=== PATIENT | male | born 1955 | race Caucasian/White ===

== ENCOUNTER 2016-04-15 13:21 | Outpatient (CLI) | payer MEDICAID | END 2016-04-15 13:22 | disposition home or self-care (01) | DX: M18.0 Bilateral primary osteoarthritis of first carpometacarpal joints (principal); M19.042 Primary osteoarthritis, left hand; M19.041 Primary osteoarthritis, right hand; M19.072 Primary osteoarthritis, left ankle and foot; M19.071 Primary osteoarthritis, right ankle and foot ==

== ENCOUNTER 2016-04-21 21:21 | Outpatient (CLI) | payer MEDICAID | END 2016-04-21 21:22 | disposition home or self-care (01) | DX: Z12.11 Encounter for screening for malignant neoplasm of colon (principal) ==

== ENCOUNTER 2016-04-22 13:52 | Outpatient (CLI) | payer MEDICAID | END 2016-04-22 13:53 | disposition home or self-care (01) | DX: M62.838 Other muscle spasm (principal); Z12.5 Encounter for screening for malignant neoplasm of prostate ==

== ENCOUNTER 2016-09-07 14:32 | Outpatient (CLI) | payer MEDICAID ==
[2016-09-07 18:25] LABS: BASOPHILS % (AUTO) 0.5 %; EOSINOPHILS # (AUTO) 0.1 10^3/uL (0.0-0.7); EOSINOPHILS % (AUTO) 0.9 %; LYMPHOCYTES # (AUTO) 1.2 10^3/uL (1.5-3.5); LYMPHOCYTES % (AUTO) 16.5 %; MEAN CORPUSCULAR HEMOGLOBIN 31.1 pg (27.0-31.0); MEAN CORPUSCULAR VOLUME 91.2 fL (80.0-94.0); MEAN PLATELET VOLUME 8.5 fL (7.4-11.4); MONOCYTES # (AUTO) 0.4 10^3/uL (0.0-1.0); MONOCYTES % (AUTO) 5.4 %; NEUTROPHILS # (AUTO) 5.8 10^3/uL (1.5-6.6); NEUTROPHILS % (AUTO) 76.7 %; RED BLOOD COUNT 4.83 10^6/uL (4.70-6.10); RED CELL DISTRIBUTION WIDTH 14.5 % (12.0-15.0); UNCORRECTED WHITE BLOOD COUNT 7.5 x10^3/uL; WHITE BLOOD COUNT 7.5 x10^3/uL (4.8-10.8)
[2016-09-07 19:30] LABS: ALBUMIN/GLOBULIN RATIO 1.9 (1.0-2.2); BILIRUBIN,TOTAL 0.9 mg/dL (0.2-1.0); BUN - BLOOD UREA NITROGEN 21 mg/dL (6-20); CALCIUM 9.5 mg/dL (8.5-10.3); CARBON DIOXIDE - CO2 26 mmol/L (21-32); CHLORIDE 107 mmol/L (101-111); CREATININE 0.9 mg/dL (0.6-1.2); GFR - MDRD 86 (>89); GLUCOSE 80 mg/dL (70-100); POTASSIUM 3.9 mmol/L (3.5-5.0); SODIUM 141 mmol/L (135-145); TOTAL PROTEIN 6.6 g/dL (6.7-8.2)
== END 2016-09-07 14:33 | disposition home or self-care (01) ==
LOC: LAB.S 14:32
PROVIDERS: ATTEND Internal Medicine Rheumatology
DX: M06.09 Rheumatoid arthritis without rheumatoid factor, multiple sites (principal); M48.06 Spinal stenosis, lumbar region; G89.4 Chronic pain syndrome; K58.9 Irritable bowel syndrome, unspecified; F41.8 Other specified anxiety disorders; F40.231 Fear of injections and transfusions; R68.84 Jaw pain
CPT/HCPCS: 36415; 80053; 85025; 85651; 86140

== ENCOUNTER 2016-09-17 14:38 | Outpatient (CLI) | payer MEDICAID ==
--- NOTE | 2016-09-18 15:19 | MRI Report ---
MRI LUMBAR SPINE WITHOUT CONTRAST INDICATION: 61-year-old male with left hip flexor weakness. Concern for progression of lumbar spine s tenosis. COMPARISON: None. TECHNIQUE: 1. Sagittal STIR, T1 and T2. 2. Sagittal T1 and T2. FINDINGS: There appear to be 5 sfp-awo-dqduote, lumbar-type vertebrae. The S1 vertebra is dysplastic with very thin left pedicle, compared to right (see image 7 of series 601). There is a fairly well-formed S1-S2 disk. Axial images demonstrate a mild levoconvex curvature with apex at about the L2-L3 disk level. In the sagittal plane there is mild stepwise retrolisthesis of L4 on L5 (4 mm) and L5 on S1 (4 mm). In addit ion, there is minimal retrolisthesis of L3 on L4. Alignment is otherwise unremarkable. There is minimal anterior wedging of T11 and mild anterior wedging of T12. Configurations such as thi s can be seen as a normal anatomical variant at the thoracolumbar junction. The vertebral body height s are otherwise preserved. Degenerative changes are seen in the disks at T11-T12 and from L2-L3 to L5-S1. The T12-L1 and L1-L2 d isks have a relatively normal appearance. There is moderate to severe disk space narrowing at L4-L5 a nd L5-S1. The disk space heights are otherwise relatively preserved. A combination of type I and type II reactive there are change is identified in the vertebral endplate s at L4-L5 on the left and at L5-S1 on the right. The marrow signal intensity is otherwise unremarkab le. The conus terminates in an appropriate fashion above the L1-L2 disk level. There is no abnormal thick ening or lipomatous change of the filum. Axial Images: L1-L2: No disk herniation. No spinal canal or foraminal stenosis. L2-L3: Small intraforaminal/extraforaminal protrusions bilaterally. Degenerative facet arthrosis with mild right facet hypertrophy. Mild prominence of intralaminar fat pad. No spinal stenosis. Mild fora flip narrowing. L3-L4: Broad-based, posterior extrusion projecting into the spinal canal for up to about 4.5 mm. Asso ciated annular fissure. Broad-based intraforaminal/extraforaminal protrusions bilaterally, larger on the right than the left. Degenerative facet arthrosis with mild right facet hypertrophy. Mild redunda ncy of ligamenta flava and mild prominence of intralaminar fat pad. The subarticular zones are stenos ed bilaterally; however, no definite impingement of traversing L4 nerve roots is demonstrated. No sig nificant central zone spinal stenosis. Lfhf-af-liimwqed bilateral foraminal stenoses. L4-L5: There is evidence of previous bilateral L5 laminectomy. Broad-based left intraforaminal/extraf oraminal extrusion. Small right intraforaminal/extraforaminal protrusion. Broad-based, posterior extr usion with caudal migration. The extrusion projects posteriorly into the spinal canal for about 7 mm. Suspect early degenerative facet arthrosis. Minimal bony hypertrophy. There is significant appearing right subarticular zone stenosis with probable compromise of traversing right L5 nerve root in the s ubarticular zone. No central zone or left subarticular zone stenosis. Cuye-co-twqmsauz right and very severe left foraminal stenoses. On the left intra-foraminal extrusion contacts the undersurface of t he exiting L4 nerve root. The perineural fat is effaced and the nerve root appears to be at least mil dly flattened in the lateral aspect of the neural foramen. L5-S1: Broad-based, right posterolateral and intraforaminal/extraforaminal extrusion. Degenerative fa cet arthrosis without significant bony hypertrophy. There is fairly severe right foraminal stenosis w ith partial effacement of perineural fat surrounding exiting right L5 nerve root. No spinal canal nidia nosis or left foraminal stenosis. Fairly advanced fatty atrophy is noted in the posterior paraspinal musculature at the L5-S1 level. Th ere is a roughly 4 mm diameter T2 hyperintense focus in cortex of lower pole right kidney, consistent with a benign cortical cyst. The regional paraspinous soft tissues are otherwise unremarkable. IMPRESSION: 1. Post surgical changes are demonstrated with evidence of previous bilateral L5 laminectomies. 2. Degenerative disk and facet changes are seen at multiple levels, most advanced in the lower lumbar region. 3. At L4-L5 there is significant appearing right subarticular zone stenosis with possible compromise of traversing right L5 nerve root. Recommend clinical correlation for possible L5 radiculopathy. 4. At L4-L5 also demonstrated is high-grade left foraminal stenosis with probable compromise of exiti ng left L4 nerve root. Recommend clinical correlation for left L4 radiculopathy. 5. At L5-S1 there is potentially significant right-sided foraminal narrowing. An intraforaminal extru anahi appears to contact the undersurface of exiting right L5 nerve root. This is a potential cause fo r right L5 nerve root irritation. Recommend clinical correlation for possible right L5 radiculitis. 6. No other high-grade stenosis is demonstrated and no other potential nerve root irritation or impin gement is identified. Referring Provider Line: [phone] SITE ID: [id number]
== END 2016-09-17 14:39 | disposition home or self-care (01) ==
LOC: DI 14:38
PROVIDERS: ATTEND Psychiatry & Neurology Neurology
DX: M48.06 Spinal stenosis, lumbar region (principal)
CPT/HCPCS: 72148

== ENCOUNTER 2016-11-04 02:05 | Emergency (ER) | payer MEDICAID ==
[2016-11-04 02:15] VITALS: BP 135/82
--- NOTE | 2016-11-04 04:01 | ED Physician Documentation ---
PD HPI OPHTHO - Stated complaint Stated Complaint: LT EYE PAIN - Chief complaint Chief Complaint: Heent - History obtained from History obtained from: Patient - History of Present Illness Timing - onset: Today Timing - duration: Hours Timing - details: Gradual onset Associated symptoms: Redness, FB sensation Recently seen: Not recently seen - Additional information Additional information: foreign body sensation left eye. no specific trauma or recollection of foreign body entering the eye. However, he was grinding metal earlier today. Patient wears glasses but not contact lenses. Review of Systems Eyes: reports: Irritation. denies: Loss of vision, Decreased vision, Photophobia, Discharge PD PAST MEDICAL HISTORY - Past Medical History Past Medical History: No - Allergies Allergies/Adverse Reactions: Allergies Allergy/AdvReac Type Severity Reaction Status Date / Time Sulfa (Sulfonamide Allergy Edema Verified 11/04/16 02:15 Antibiotics) - Living Situation Living Arrangement: reports: At home PD ED PE NORMAL - Vitals Vital signs reviewed: Yes - General General: Alert and oriented X 3, No acute distress, Well developed/nourished - HEENT HEENT: PERRL, EOMI PD ED PE EXPANDED - Eyes Eyes: No eyelid FB (everted), Subconj hemorrhage (left eye, nasal aspect), Normal corneas, Anterior chambers clear. No: Eyelid swelling, Eyelid erythema, Corneal FB, Corneal abrasion, Corneal ulcer, Fluorescein uptake, Hyphema Results - Vitals Vitals: Oxygen O2 Source Room air PD MEDICAL DECISION MAKING - ED course Complexity details: considered differential, d/w patient Departure - Departure Disposition: 01 Home, Self Care Clinical Impression: Subconjunctival hemorrhage of left eye Condition: Good Instructions: ED Eye Injury Subconj Hemorrhage Discharge Date/Time: 11/04/16 04:34
[2016-11-04] MEDS ORDERED: PROPARACAINE 0.5% OPHTH DROPS 15 ML LEFTEYE STA (04:02)
[2016-11-04] MEDS ORDERED: PROPARACAINE 0.5% OPHTH DROPS 15 ML ONE (04:07)
== END 2016-11-04 04:34 | disposition home or self-care (01) ==
LOC: ED 02:05
DX: H11.32 Conjunctival hemorrhage, left eye (principal)
CPT/HCPCS: 99282; J3490

== ENCOUNTER 2016-12-30 13:35 | Outpatient (CLI) | payer MEDICAID ==
[2016-12-30 17:34] LABS: BASOPHILS % (AUTO) 0.5 %; EOSINOPHILS % (AUTO) 0.4 %; HCT - HEMATOCRIT 46.2 % (42.0-52.0); HGB - HEMOGLOBIN 15.4 g/dL (14.0-18.0); LYMPHOCYTES # (AUTO) 1.1 10^3/uL (1.5-3.5); LYMPHOCYTES % (AUTO) 13.2 %; MEAN CORPUSCULAR HEMOGLOBIN 30.1 pg (27.0-31.0); MEAN CORPUSCULAR HGB CONC 33.3 g/dL (32.0-36.0); MEAN CORPUSCULAR VOLUME 90.3 fL (80.0-94.0); MEAN PLATELET VOLUME 7.8 fL (7.4-11.4); MONOCYTES # (AUTO) 0.6 10^3/uL (0.0-1.0); MONOCYTES % (AUTO) 7.3 %; NEUTROPHILS # (AUTO) 6.6 10^3/uL (1.5-6.6); NEUTROPHILS % (AUTO) 78.6 %; RED BLOOD COUNT 5.11 10^6/uL (4.70-6.10); UNCORRECTED WHITE BLOOD COUNT 8.5 x10^3/uL; WHITE BLOOD COUNT 8.5 x10^3/uL (4.8-10.8)
[2016-12-30 18:11] LABS: ALBUMIN/GLOBULIN RATIO 1.6 (1.0-2.2); BILIRUBIN,TOTAL 0.7 mg/dL (0.2-1.0); BUN - BLOOD UREA NITROGEN 23 mg/dL (6-20); CALCIUM 9.6 mg/dL (8.5-10.3); CARBON DIOXIDE - CO2 23 mmol/L (21-32); CHLORIDE 105 mmol/L (101-111); CREATININE 0.9 mg/dL (0.6-1.2); GFR - MDRD 86 (>89); GLUCOSE 102 mg/dL (70-100); POTASSIUM 4.1 mmol/L (3.5-5.0); SODIUM 136 mmol/L (135-145)
== END 2016-12-30 13:36 | disposition home or self-care (01) ==
LOC: LAB.F 13:35
PROVIDERS: ATTEND Internal Medicine Rheumatology
DX: L40.50 Arthropathic psoriasis, unspecified (principal); M79.1 Myalgia; M19.90 Unspecified osteoarthritis, unspecified site; M48.02 Spinal stenosis, cervical region; G89.4 Chronic pain syndrome; K58.9 Irritable bowel syndrome, unspecified; F41.8 Other specified anxiety disorders; F40.231 Fear of injections and transfusions; L30.9 Dermatitis, unspecified
CPT/HCPCS: 36415; 80053; 85025; 85651; 86140

== ENCOUNTER 2017-03-08 13:37 | Outpatient (CLI) | payer MEDICAID ==
--- NOTE | 2017-03-09 14:41 | DEXA Report ---
DEXA SCAN: 03/08/2017 CLINICAL INDICATION: Rheumatoid arthritis, long-term steroid use, methotrexate therapy. TECHNIQUE: Dual energy x-ray absorptiometry (DXA) was performed on a MC10 system. Regions measured are the AP spine, femoral neck, and, if needed, forearm. COMPARISON: None. In accordance with the International Society for Clinical Densitometry (ISCD) guidelines, data from previous exams may be reanalyzed using current recommendations and techniques. This is done to allow a more accurate basis for comparison with the current study. FINDINGS The data for the lumbar spine is as follows: REGION BMD (g/cm/cm) T-SCORE Z-SCORE L1 1.060 -0.8 -0.3 L2 1.158 -0.7 -0.2 L3 1.241 0.0 0.5 L4 1.237 0.0 0.5 L1 - L3 1.159 -0.4 0.1 NOTE: All evaluable vertebrae are used for classification. The data for the hip is as follows: REGION BMD (g/cm/cm) T-SCORE Z-SCORE Neck 0.859 -1.6 -0.5 TOTAL 0.966 -0.9 -0.4 NOTE: The femoral neck or total proximal femur, whichever is lowest, is used for classification. IMPRESSION THE WHO CLASSIFICATION BASED ON THE INTERNATIONAL REFERENCE STANDARD IS OSTEOPENIA (REFERENCE LEFT FEMORAL NECK). THE FRACTURE RISK IS INCREASED. RECOMMENDATION: Patients with diagnosis of osteoporosis or osteopenia should have regular bone mineral density assessment. For those eligible for Medicare, routine testing is allowed once every 2 years. Testing frequency can be increased for patients who have rapidly progressing disease or for those who are receiving medical therapy to restore bone mass. COMMENT: World Health Organization (WHO) definitions for osteoporosis and osteopenia: NORMAL BMD: T-score at 1.0 or higher, fracture risk is low. OSTEOPENIA BMD: T-score between 1.0 and -2.5, fracture risk is increased. OSTEOPOROSIS BMD: T-score at 2.5 or lower, fracture risk high. National Osteoporosis Foundation recommends: 1. Obtain adequate dietary calcium (at least 1200 mg per day) and vitamin D (400 -800 international units per day). 2. Participate, as appropriate, in regular weightbearing and muscle- strengthening exercise. 3. Avoid tobacco use and reduce alcohol and caffeine intake. 4. For more detailed information see the website at www.NOF.org. TD: 03/08/2017 17:35 MTDJenelle
== END 2017-03-08 13:38 | disposition home or self-care (01) ==
LOC: DI 13:37
PROVIDERS: ATTEND Internal Medicine Rheumatology
DX: M85.88 Other specified disorders of bone density and structure, other site (principal)
CPT/HCPCS: 77080

== ENCOUNTER 2018-02-04 08:00 | Outpatient (CLI) | payer MEDICAID ==
[2018-02-04 17:44] LABS: BASOPHILS # (AUTO) 0.1 10^3/uL (0.0-0.1); BASOPHILS % (AUTO) 0.9 %; EOSINOPHILS # (AUTO) 0.1 10^3/uL (0.0-0.7); EOSINOPHILS % (AUTO) 0.7 %; HGB - HEMOGLOBIN 15.3 g/dL (14.0-18.0); LYMPHOCYTES % (AUTO) 10.9 %; MEAN CORPUSCULAR HEMOGLOBIN 30.6 pg (27.0-31.0); MEAN CORPUSCULAR VOLUME 92.7 fL (80.0-94.0); MEAN PLATELET VOLUME 7.8 fL (7.4-11.4); MONOCYTES # (AUTO) 0.5 10^3/uL (0.0-1.0); NEUTROPHILS # (AUTO) 7.7 10^3/uL (1.5-6.6); NEUTROPHILS % (AUTO) 82.5 %; PLT - PLATELET COUNT 255 10^3/uL (130-450); RED BLOOD COUNT 5.01 10^6/uL (4.70-6.10); WHITE BLOOD COUNT 9.3 x10^3/uL (4.8-10.8)
[2018-02-04 17:59] LABS: ALBUMIN 4.4 g/dL (3.2-5.5); ALBUMIN/GLOBULIN RATIO 1.8 (1.0-2.2); ALKALINE PHOSPHATASE 75 IU/L (42-121); ALT ALANINE AMINOTRANSFERASE 32 IU/L (10-60); AST ASPARTATE AMINOTRANSFERASE 29 IU/L (10-42); BUN - BLOOD UREA NITROGEN 18 mg/dL (6-20); CALCIUM 9.6 mg/dL (8.5-10.3); CARBON DIOXIDE - CO2 24 mmol/L (21-32); CHLORIDE 104 mmol/L (101-111); CREATININE 0.8 mg/dL (0.6-1.2); GFR - MDRD 98 (>89); GLUCOSE 99 mg/dL (70-100); SODIUM 137 mmol/L (135-145); TOTAL PROTEIN 6.8 g/dL (6.7-8.2)
[2018-02-04 19:36] LABS: CRP - C-REACTIVE PROTEIN < 1.0 mg/dL (0-1.0)
== END 2018-02-04 23:59 | disposition home or self-care (01) ==
LOC: LAB.F 08:00
PROVIDERS: ATTEND Nurse Practitioner Family
DX: M06.9 Rheumatoid arthritis, unspecified (principal)
CPT/HCPCS: 36415; 80053; 85025; 85651; 86140

== ENCOUNTER 2019-03-17 14:05 | Outpatient (CLI) | payer MEDICAID, MEDICARE | END 2019-03-17 23:59 | disposition home or self-care (01) | LOC: LAB.R 14:05 | PROVIDERS: ATTEND Registered Nurse | DX: R30.0 Dysuria (principal) | CPT/HCPCS: 87086 ==

== ENCOUNTER 2019-05-26 13:53 | Outpatient (CLI) | payer MEDICARE ==
[2019-05-26 17:12] LABS: BASOPHILS % (AUTO) 0.6 %; EOSINOPHILS # (AUTO) 0.1 10^3/uL (0.0-0.7); EOSINOPHILS % (AUTO) 1.4 %; LYMPHOCYTES # (AUTO) 0.8 10^3/uL (1.5-3.5); LYMPHOCYTES % (AUTO) 15.3 %; MEAN CORPUSCULAR HEMOGLOBIN 29.9 pg (27.0-31.0); MEAN CORPUSCULAR HGB CONC 33.6 g/dL (32.0-36.0); MEAN CORPUSCULAR VOLUME 88.9 fL (80.0-94.0); MEAN PLATELET VOLUME 11.3 fL (7.4-11.4); MONOCYTES # (AUTO) 0.6 10^3/uL (0.0-1.0); MONOCYTES % (AUTO) 10.7 %; NEUTROPHILS # (AUTO) 3.7 10^3/uL (1.5-6.6); NEUTROPHILS % (AUTO) 71.4 %; PLT - PLATELET COUNT 230 10^3/uL (130-450); RED BLOOD COUNT 4.69 10^6/uL (4.70-6.10); RED CELL DISTRIBUTION WIDTH 14.4 % (12.0-15.0); WHITE BLOOD COUNT 5.2 x10^3/uL (4.8-10.8)
[2019-05-26 17:35] LABS: BILIRUBIN,URINE NEGATIVE (NEGATIVE); GLUCOSE, URINE (UA) NEGATIVE (NEGATIVE); KETONES,URINE (UA) NEGATIVE (NEGATIVE); LEUKOCYTE ESTERASE, URINE NEGATIVE (NEGATIVE); NITRITE,URINE NEGATIVE (NEGATIVE); OCCULT BLOOD,URINE NEGATIVE (NEGATIVE); PROTEIN,URINE NEGATIVE (NEGATIVE); UROBILINOGEN,URINE 0.2 (NORMAL) E.U./dL (NORMAL)
[2019-05-26 17:39] LABS: CLARITY,URINE CLEAR (CLEAR)
[2019-05-26 17:46] LABS: ALBUMIN 4.4 g/dL (3.2-5.5); BILIRUBIN,TOTAL 1.2 mg/dL (0.2-1.0); CALCIUM 8.9 mg/dL (8.5-10.3); CREATININE 0.7 mg/dL (0.6-1.2); TOTAL PROTEIN 6.6 g/dL (6.7-8.2)
[2019-05-26 20:23] LABS: TRICHOMONAS VAGINALIS DNA NEGATIVE (NEGATIVE)
== END 2019-05-26 23:59 | disposition home or self-care (01) ==
LOC: LAB.WCP 13:53
PROVIDERS: ATTEND Registered Nurse
DX: N41.1 Chronic prostatitis (principal); F31.9 Bipolar disorder, unspecified; R03.0 Elevated blood-pressure reading, without diagnosis of hypertension; M79.7 Fibromyalgia; M06.9 Rheumatoid arthritis, unspecified; Z12.5 Encounter for screening for malignant neoplasm of prostate
CPT/HCPCS: 36415; 80053; 81003; 84443; 85025; 87086; 87491; 87591; 87661; G0103; 80061; 81001; 83721; 84153

== ENCOUNTER 2022-06-15 07:00 | Outpatient (CLI) | payer MEDICARE, MEDICAID ==
--- NOTE | 2022-06-16 13:36 | XRAY Report ---
PROCEDURE: Lumbar Spine 2 View INDICATIONS: LOW BACK PAIN TECHNIQUE: 3 views of the lumbar spine were acquired. COMPARISON: MRI lumbar spine 09/17/2016 FINDINGS: Bones: 5 chx-gjv-rbnhavv vertebrae are present. There is normal bony alignment. No vertebral body compression fractures. No suspicious bony lesions. Multilevel moderate to severe degenerative disc and foraminal narrowing most prominent at L5-S1. Mild leftward scoliotic curvature. Soft tissues: Overlying bowel gas pattern is normal. No suspicious soft tissue calcifications. IMPRESSION: Multilevel degenerative changes as above. Reviewed by: Elvira Mcclain MD on 06/16/2022 1:35 PM PDT Approved by: Elvira Mcclain MD on 06/16/2022 1:35 PM PDT Station ID: [id number]
== END 2022-06-15 23:59 | disposition home or self-care (01) ==
LOC: DI.S 07:00
PROVIDERS: ATTEND Physician Assistant
DX: M47.816 Spondylosis without myelopathy or radiculopathy, lumbar region (principal)

== ENCOUNTER 2022-12-28 13:25 | Outpatient (CLI) | payer MEDICARE, MEDICAID ==
[2022-12-28 20:34] LABS: BASOPHILS # (AUTO) 0.1 10^3/uL (0.0-0.1); BASOPHILS % (AUTO) 0.7 %; EOSINOPHILS # (AUTO) 0.1 10^3/uL (0.0-0.7); EOSINOPHILS % (AUTO) 0.7 %; HCT - HEMATOCRIT 46.4 % (42.0-52.0); HGB - HEMOGLOBIN 15.7 g/dL (14.0-18.0); LYMPHOCYTES # (AUTO) 1.3 10^3/uL (1.5-3.5); LYMPHOCYTES % (AUTO) 17.8 %; MEAN CORPUSCULAR HEMOGLOBIN 30.5 pg (27.0-31.0); MEAN CORPUSCULAR HGB CONC 33.8 g/dL (32.0-36.0); MEAN CORPUSCULAR VOLUME 90.1 fL (80.0-94.0); MEAN PLATELET VOLUME 10.1 fL (7.4-11.4); MONOCYTES # (AUTO) 0.5 10^3/uL (0.0-1.0); MONOCYTES % (AUTO) 7.1 %; NEUTROPHILS # (AUTO) 5.5 10^3/uL (1.5-6.6); PLT - PLATELET COUNT 293 10^3/uL (130-450); RED BLOOD COUNT 5.15 10^6/uL (4.70-6.10); RED CELL DISTRIBUTION WIDTH 14.3 % (12.0-15.0); WHITE BLOOD COUNT 7.5 x10^3/uL (4.8-10.8)
[2022-12-28 20:46] LABS: ALBUMIN 4.9 g/dL (3.2-5.5); ALBUMIN/GLOBULIN RATIO 3.1 (1.0-2.2); ALKALINE PHOSPHATASE 60 IU/L (42-121); ALT ALANINE AMINOTRANSFERASE 22 IU/L (10-60); AST ASPARTATE AMINOTRANSFERASE 24 IU/L (10-42); BILIRUBIN,TOTAL 1.5 mg/dL (0.2-1.0); BUN - BLOOD UREA NITROGEN 21 mg/dL (6-20); CALCIUM 9.7 mg/dL (8.5-10.3); CARBON DIOXIDE - CO2 27 mmol/L (21-32); CHLORIDE 104 mmol/L (101-111); CHOL/HDL RATIO 3.3 (<5.0); CHOLESTEROL 270 mg/dL; CREATININE 0.8 mg/dL (0.6-1.3); GFR - MDRD 96 (>89); GLUCOSE 99 mg/dL (74-104); HDL CHOLESTEROL 83 mg/dL; LDL CHOLESTEROL,CALCULATED 172 mg/dL; LDL/HDL RATIO 2.1 (<3.6); POTASSIUM 3.8 mmol/L (3.5-4.5); SODIUM 138 mmol/L (135-145); TOTAL PROTEIN 6.5 g/dL (6.4-8.9); TRIGLYCERIDES 73 mg/dL (48-352); VLDL CHOLESTEROL 15 mg/dL
[2022-12-28 21:01] LABS: THYROID STIMULATING HORMONE 1.56 uIU/mL (0.34-5.60)
== END 2022-12-28 13:26 | disposition home or self-care (01) ==
LOC: LAB.S 13:25
PROVIDERS: ATTEND Registered Nurse
DX: M06.9 Rheumatoid arthritis, unspecified (principal); R53.82 Chronic fatigue, unspecified; Z79.899 Other long term (current) drug therapy; Z12.5 Encounter for screening for malignant neoplasm of prostate; R03.0 Elevated blood-pressure reading, without diagnosis of hypertension
CPT/HCPCS: 36415; 80053; 80061; 84443; 85025; G0103; 83721; 84153

== ENCOUNTER 2023-01-01 11:02 | Outpatient (CLI) | payer MEDICARE, MEDICAID ==
--- NOTE | 2023-01-01 11:47 | XRAY Report ---
PROCEDURE: Foot 2 View BILAT INDICATIONS: RHEUMATOID ARTHRITIS TECHNIQUE: 3 views of the bilateral feet were acquired. COMPARISON: None. FINDINGS: Bones: No fractures or dislocations. Mild pes planus alignment bilaterally. Mild hallux valgus angu lation of the bilateral first MTP joints with mild medial bunion formation. No suspicious bony lesion s. Soft tissues: No suspicious soft tissue calcifications or masses. IMPRESSION: No radiographic evidence of inflammatory arthritis. Reviewed by: Adriano Lagunas MD on 01/01/2023 11:46 AM PST Approved by: Adriano Lagunas MD on 01/01/2023 11:46 AM PST Station ID: [id number]
--- NOTE | 2023-01-01 11:48 | XRAY Report ---
PROCEDURE: Hand 2 View BILAT INDICATIONS: RHEUMATOID ARTHRITIS TECHNIQUE: 2 views of the bilateral hand(s) acquired. COMPARISON: None. FINDINGS: Bones: No fractures or dislocations. Moderate degenerative changes of the bilateral first MCP joint s. No osseous erosions. No suspicious bony lesions. Soft tissues: No suspicious soft tissue calcifications or masses. IMPRESSION: No radiographic evidence of inflammatory arthropathy. Moderate degenerative changes of the bilateral first metacarpophalangeal joints. Reviewed by: Adriano Lagunas MD on 01/01/2023 11:47 AM PST Approved by: Adriano Lagunas MD on 01/01/2023 11:47 AM PST Station ID: [id number]
== END 2023-01-01 11:03 | disposition home or self-care (01) ==
LOC: DI.S 11:02
PROVIDERS: ATTEND Registered Nurse
DX: M19.041 Primary osteoarthritis, right hand (principal); M19.042 Primary osteoarthritis, left hand